=== PATIENT | female | born 1995 | race Caucasian/White ===

== ENCOUNTER 2021-11-08 12:27 | Emergency (ER) | payer BC ==
[~2021-11-08] VITALS: Ht 180.3 cm; Wt 59.9 kg
[2021-11-08] MEDS ORDERED: CHLORASEPTIC T1 EACH PO (13:33)
[2021-11-08] MEDS ORDERED: THERAFLU FLU &1 EAC1 PO (13:33)
[2021-11-08] MEDS ORDERED: CEFDINIR300 MG PO (13:33)
== END 2021-11-08 14:45 | disposition home or self-care (01) ==
LOC: FSED 12:54
DX: R05.9 Cough, unspecified (principal); J02.9 Acute pharyngitis, unspecified; Z20.822 Contact with and (suspected) exposure to COVID-19
CPT/HCPCS: 83518; 99283; U0002